=== PATIENT | female | born 1975 | race Caucasian/White ===

== ENCOUNTER 2020-09-06 18:32 | Emergency (ER) | payer BC, SELFPAY ==
[2020-09-06 18:35] VITALS: BP 160/99; PULSE 110; RESP 16; TEMP 35.8; O2SAT 99
--- NOTE | 2020-09-06 19:47 | ED.GENADULT ---
HPI - General Adult General Chief complaint: Back Pain/Injury Stated complaint: right leg pain Time Seen by Provider: 09/06/20 19:01 History of Present Illness HPI narrative: Patient is a 45-year-old female who presents the emergency department with chief complaint of right sciatic pain. Patient reports that she was seen by her primary care physician approximately 2 weeks ago and given a steroid pulse and then given Tylenol with codeine and a muscle relaxer. Patient states that she has continued to have pain and it is gotten worse the patient states the pain shoots down her right leg denies numbness or tingling denies foot drop denies bowel or bladder dysfunction. Related Data Home Medications Medication Instructions Recorded Confirmed acetaminophen-codeine tablet 09/06/20 bupropion HCl mg PO 09/06/20 hydroxyzine HCl 09/06/20 09/06/20 Allergies Allergy/AdvReac Type Severity Reaction Status Date / Time Penicillins Allergy Unknown Unknown Verified 09/06/20 18:46 Review of Systems Review of Systems: Narrative: A 10 system review of systems was completed on the patient and is negative except for what is stated in the HPI. Nursing and ancillary documentation was reviewed. PMFSH Comments Patient denies past medical history Social history patient denies illicit drug use Exam Narrative: Exam Narrative: GENERAL: Well-appearing, well-nourished, and in no acute distress. HEAD: Normocephalic, atraumatic. EYES: PERRLA and EOMI. ENT: Nares clear, no rhinorrhea or epistaxis. Mucous membranes moist. NECK: Supple. CHEST: Clear to auscultation. No respiratory distress. HEART: Regular rate and rhythm. No murmur heard. Normal peripheral pulses. ABDOMEN: Soft, nontender, nondistended, normal active bowel sounds. EXTREMITIES: Normal range of motion. No edema. There is tenderness to palpation along the right SI joint and along the sciatic nerve are unremarkable SKIN: Warm, dry, no rash. NEURO: No focal deficits. Alert and oriented x3. PSYCH: Normal mood and affect. Course Course Emergency Course: 8. Patient was given a dose of IM pain medication steroid and anti-inflammatory pain medication We discussed with the patient that she should follow-up with her primary care physician as she may need an MRI Vital Signs Vital signs: Vital Signs Temperature 35.8 C L 09/06/20 18:35 Pulse Rate 110 H 09/06/20 18:35 Respiratory Rate 16 09/06/20 18:35 Blood Pressure 160/99 H 09/06/20 18:35 Pulse Oximetry 99 09/06/20 18:35 Temperature 35.8 C L 09/06/20 18:35 Pulse Rate 110 H 09/06/20 18:35 Respiratory Rate 16 09/06/20 18:35 Blood Pressure 160/99 H 09/06/20 18:35 Pulse Oximetry 99 09/06/20 18:35 Medical Decision Making Vital Signs Vital Signs: Vital Signs Temperature 35.8 C L 09/06/20 18:35 Pulse Rate 110 H 09/06/20 18:35 Respiratory Rate 16 09/06/20 18:35 Blood Pressure 160/99 H 09/06/20 18:35 Pulse Oximetry 99 09/06/20 18:35 Temperature 35.8 C L 09/06/20 18:35 Pulse Rate 110 H 09/06/20 18:35 Respiratory Rate 16 09/06/20 18:35 Blood Pressure 160/99 H 09/06/20 18:35 Pulse Oximetry 99 09/06/20 18:35 Discharge Plan Discharge Clinical Impression: Sciatica Qualifiers: Laterality: right Qualified Code(s): M54.31 - Sciatica, right side Instructions: Sciatica (ED) Prescriptions: New hydrocodone-acetaminophen 5-325 mg tablet 1 tablet PO Q6H PRN (Reason: pain) 3 Days Qty: 12 RF: 0 prednisone 20 mg tablet 40 mg PO DAILY 5 Days Qty: 10 RF: 0 No Action acetaminophen-codeine 300-30 mg tablet RF: 0 hydroxyzine HCl 25 mg tablet RF: 0 bupropion HCl 300 mg tablet extended release 24 hr PO RF: 0 Follow-up/Referrals: Bruno,Bibi Fang, FILAMENT SHAPER-BC [Primary Care Provider] -
[2020-09-06] MEDS: KETOROLAC (*BKC) 60 MG/2 ML VIAL IM (20:23)
[2020-09-06] MEDS: HYDROmorphone HCL INJ (*CRX) 1 MG/ML SYR IM (20:23)
[2020-09-06] MEDS: DEXAMETHASONE SOD PHOS INJ 4 MG/ML VIAL 10 MG IM (20:23)
== END 2020-09-06 20:49 | disposition still patient (30) ==
PROVIDERS: Emergency Provider Emergency Medicine; PCP Nurse Practitioner Family
DX: M54.31 Sciatica, right side (principal)
CPT/HCPCS: 96372; 99284; J1100; J1170; J1885

== ENCOUNTER 2023-10-21 22:05 | Emergency (ER) | payer OTHER, BC, SELFPAY ==
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
[2023-10-21 22:12] VITALS: BP 157/106; PULSE 92; RESP 17; TEMP 36.6; O2SAT 99
[2023-10-22 00:40] VITALS: BP 146/92; PULSE 86; RESP 15; O2SAT 100
[2023-10-22] MEDS: CYCLOBENZAPRINE HCL 5 MG TABLET PO (01:04)
[2023-10-22] MEDS: ACETAMINOPHEN 500 MG TABLET 1000 MG PO (01:04)
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
[2023-10-22] MEDS: oxyCODONE HCL (*CRX) 5 MG TAB IR PO (02:19)
[2023-10-22 02:29] VITALS: BP 139/93; PULSE 84; RESP 14; O2SAT 98
== END 2023-10-22 02:31 | disposition home or self-care (01) ==
PROVIDERS: Emergency Provider Physician Assistant; PCP Nurse Practitioner Family
DX: S16.1XXA Strain of muscle, fascia and tendon at neck level, initial encounter (principal); S70.02XA Contusion of left hip, initial encounter; S39.012A Strain of muscle, fascia and tendon of lower back, initial encounter; J45.909 Unspecified asthma, uncomplicated; F41.9 Anxiety disorder, unspecified; Z87.891 Personal history of nicotine dependence; Z90.49 Acquired absence of other specified parts of digestive tract; Z90.711 Acquired absence of uterus with remaining cervical stump; I67.2 Cerebral atherosclerosis; M16.0 Bilateral primary osteoarthritis of hip; M51.36 Other intervertebral disc degeneration, lumbar region; M51.37 Other intervertebral disc degeneration, lumbosacral region; M50.322 Other cervical disc degeneration at C5-C6 level; M89.9 Disorder of bone, unspecified; V49.40XA Driver injured in collision with unspecified motor vehicles in traffic accident, initial encounter
CPT/HCPCS: 70450; 72100; 72125; 73030; 73502; 73552; 99284; A9270

== ENCOUNTER 2024-01-18 08:59 | Outpatient (CLI) | payer BC, SELFPAY ==
--- NOTE | ~2024-01-18 | US_ITS ---
EXAMINATION: US carotid duplex BI DATE: 01/18/2024 09:49 INDICATION: Occlusion and stenosis of bilateral carotid arteries. TECHNIQUE: Grayscale, color Doppler, and pulsed Doppler images of the cervical carotid arteries were obtained. The degree of vessel stenosis is placed in one of the following categories: normal, <50%, 5 0-69%, >=70% but less than near-occlusion, near-occlusion, or total occlusion. Note that percent sten osis relative to normal distal artery lumen diameter is indirectly measured from velocity measurement s as described by Willard, et al. Radiology 2003; 229:340-346. COMPARISON: None. FINDINGS: RIGHT: The right common carotid artery (CCA) peak systolic velocity (PSV) is 80 cm/s. The right internal car otid artery (ICA) PSV is 103 cm/s. The right ICA end-diastolic velocity (EDV) is 49 cm/s. The right I CA/CCA PSV ratio is 1.3. Grayscale and color Doppler images yield an estimate of <50% diameter reduct ion from plaque in the ICA. There is antegrade flow in the right vertebral artery. LEFT: The left CCA PSV is 94 cm/s. The left ICA PSV is 89 cm/s. The left ICA EDV is 39 cm/s. The left ICA/C CA PSV ratio is 0.9. Grayscale and color Doppler images yield an estimate of <50% diameter reduction from plaque in the ICA. There is antegrade flow in the left vertebral artery. IMPRESSION: 1. <50% stenosis in the right internal carotid artery. 2. <50% stenosis in the left internal carotid artery. Reviewed, dictated and finalized at location A.
--- NOTE | ~2024-01-18 | NM_ITS ---
EXAMINATION: NM bone scan limited area DATE: 01/18/2024 13:17 INDICATION: Disorder of bone with sclerotic lesion in the cervical spine on prior CT TECHNIQUE: 25.2 mCi Tc-99m HDP was administered intravenously. Delayed scintigrams were obtained and multiple obliquities of the head, neck, chest abdomen and upper pelvis. COMPARISON: Cervical spine CT and multiple radiographs dated 10/22/2023 FINDINGS: There is mild uptake extending horizontally across the lower cervical spine on the anterior scintigra m which appears to correspond to small anterior endplate osteophytes at C5-C6 as seen on the prior CT . No focus of abnormal uptake in the more cephalad cervical spine. Specifically no evident abnormal u ptake at the left side of the C4 vertebral body at the site of the previous noted sclerotic lesion mo st likely representing a bone island. Symmetric mild likely degenerative joint centered uptake at the bilateral acromioclavicular joints. Mild uptake at the left posterior aspect of the lower lumbar spi ne likely related to facet osteoarthritis at the level of L4-L5 with corresponding hypertrophic sewell es evident at this level on radiographs. IMPRESSION: 1. Likely degenerative mild joint and disc centered uptake as detailed above. No evident abnormal upt kerrie in the region of the sclerotic lesion at C4 to suggest malignancy/metastatic disease. Reviewed, dictated and finalized at location B. IMPRESSION: 1. Likely degenerative mild joint and disc centered uptake as detailed above. N o evident abnormal uptake in the region of the sclerotic lesion at C4 to sugges t malignancy/metastatic disease.
== END 2024-01-18 09:00 | disposition home or self-care (01) ==
PROVIDERS: PCP Nurse Practitioner Family; Visit Provider Nurse Practitioner Family
DX: M89.9 Disorder of bone, unspecified (principal); I65.23 Occlusion and stenosis of bilateral carotid arteries
CPT/HCPCS: 78300; 93880; A9503

== ENCOUNTER 2025-07-05 01:43 | Day surgery (SDC) | payer BC, SELFPAY ==
[2025-06-28 09:13] VITALS: BMI 23.6
--- OUTSIDE RECORDS SUMMARY | 2025-07-05 01:47 | XMS_ITS | Clinical Summary ---
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 Active multivitamin-Ca -iron-minerals 18-0.4 mg tabletIndicatio ns:Vitamin Deficiency Prevention Take 1 tablet by mouth 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 [employer] 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 before breakfast Active albuterol HFA (PROVENTIL HFA,VENTOLIN HFA,PROAIR HFA) 90 mcg/actuation inhaler Inhale 2 puffs every 6 (six) hours as needed for wheezing Active Active Problems Problem Noted Date Diagnosed Date Postoperative visit 05/29/2020 Family history of uterine cancer 10/03/2019 History of cervical dysplasia 10/03/2019 Abnormal uterine bleeding (AUB) 10/03/2019 Anxiety and depression 10/03/2019 Encounters Date Type Department Care Team Description 04/09/2025 8:30 AM CDT - 04/09/2025 11:59 PM CDT Hospital Encounter [facility] - Breast Imaging [address] [facility] [address] [facility] [address] [place] [address] Screening mammogram, encounter for Discharge Disposition: Discharge to home or self care from Last 3 Months Surgical History Surgery Date Site/Laterality Comments CHOLECYSTECTOMY 07/25/2001 - 07/24/2002 CERVICAL CONE BIOPSY 2005 or 2006 HYSTERECTOMY Medical History Medical History Date Comments Asthma Cervical dysplasia Family History Medical History Relation Name Comments Heart disease Father Uterine cancer Mother Heart disease Paternal Grandfather Heart disease Paternal Grandmother Anesthesia problems Neg Hx Relation Name Status Comments Father Mother Alive Paternal Grandfather Paternal Grandmother Social History Tobacco Use Types Packs/Day Years Used Date Smoking Tobacco: Former Cigarettes Q uit: 2004 Smokeless Tobacco: Never Alcohol Use Standard Drinks/Week Comments Yes 0 (1 standard drink = 0.6 oz pur e alcohol) rarely Comments No Sex and Gender Information Value Date Recorded Sex Assigned at Not on file Legal Sex 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 Gender Identity Female 05/29/2020 9:22 AM 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 Sexual Orientation 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 Obstetrics History Para Term AB IAB SAB Ectopic Multiple Livin g Live Births 3 2 2 2 2 Date Outcome GA Total Labor Labor/2nd/3rd Weight Sex Type Anes PTL Sandhya A1 A5 Name Clin Term Term Last Filed Vital Signs Vital Sign Reading Time Taken Comments Blood Pressure 145/92 05/29/2020 4:02 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 Pulse 87 05/29/2020 4:02 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 Temperature 36.8 C (98.2 F) 05/29/2020 4:02 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 Respiratory Rate 16 05/29/2020 4:02 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 Oxygen Saturation 96% 05/29/2020 4:02 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 Inhaled Oxygen Concentration - - Weight 74.8 kg (165 lb) 04/09/2025 9:07 AM CDT Height 170.2 cm (5' 7) 04/09/2025 9:07 AM CDT Body Mass Index 25.84 04/09/2025 9:07 AM CDT Plan of Treatment Health Maintenance Due Date Last Done Comments Colon Cancer Screening-Colonoscopy 1974 Depression Screening 1974 Hepatitis C Screening 1974 Hepatitis B Screening 02/06/1992 Regular Well Visit/Exam 18-64 02/06/1992 Pneumococcal vaccine <65 (1 of 2 - PCV) 1993 Zoster Vaccine (1 of 2) 02/06/2024 Influenza Vaccine (#1) 2025 , 05/25/2023, 05/05/2022, Additional history exists Breast Cancer Screening-Mammogram 04/09/2026 04/09/2025, 01/17/2024, 01/02/2024, Additional history exists DTaP/Tdap/Td Vaccine (2 - Td or Tdap) 12/13/2027 12/12/2017 Procedures Procedure Name Priority Date/Time Associated Diagnosis Comments SCREENING MAMMOGRAM BILATERAL W FUENTES Schedule Routine, Read Routine (OP Routine) 04/09/2025 9:14 AM CDT Screening mammogram, encounter for from Last 3 Months Results * Screening Mammogram Bilateral W Fuentes (04/09/2025 9:14 AM CDT) Anatomical Region Laterality Modality Breast Bilateral Mammography Impressions 04/10/2025 3:44 PM CDT Bilateral No evidence of malignancy in either breast. OVERALL BI-RADS FINAL ASSESSMENT: 2 - Benign RECOMMENDATION: Recommend bilateral annual screening mammography. Narrative 04/10/2025 3:44 PM CDT EXAMINATION: Screening Mammogram Bilateral W Fuentes: 04/09/2025 COMPARISON: Relevant prior studies available at the time of interpretation were reviewed, including the most recent mammogram on: 01/17/2024. TECHNIQUE: Mammography was performed with 2D and 3D digital breast tomosynthesis (DBT) images. CAD was utilized. BREAST PARENCHYMAL COMPOSITION: There are scattered areas of fibroglandular density. FINDINGS: Bilateral There is no suspicious mass, calcification, or architectural distortion in either breast. us Self Screening Mammogram IMG MAMMO PROCEDURES Fi nal Result from Last 3 Months Insurance ANTH ACCESS BLUE ACCESS CT BLUE ACCESS CT BLUE ACCESS CT Care Teams Torch Shearer Relationship Specialty Start Date End Date Bibi Carr NP PCP - General Nurse Practitioner 10/03/19 Lenore Lee MD [address] [place] [address] Referring Physician Gynecology 12/17/22
--- OUTSIDE RECORDS SUMMARY | 2025-07-05 01:47 | XMS_ITS | Data Portability ---
Author Organization [facility], Main Office Address [address] [place] [address] Assessment No assessment recorded. Plan of Treatment Reminders Order Date Submit Date Provider Last Modified By Organization Details Last Modified Time Details Appointments None recorded. Lab lipid panel, serum 2022 023 [facility], [address] [place], [address], 3 04:45:14 TSH, serum, reflex free T4 [email or web address], [address] [place], [address], 3 12:03:13 CMP, serum or plasma 2022 023 [facility], [address] [place], [address], 3 04:45:15 HbA1c (hemoglobin A1c), blood 2022 023 [facility], [address] [place], [address], 3 04:45:18 CBC w/ auto diff 2022 023 [facility], [address] [place], [address], 3 04:45:16 Referral gastroenter ologist referral - Please call pt to schedule appt. Thank you 2022 023 [email or web address] 7 Thomas reid MD, [address], [address], [place], [address], 3 09:57:10 Procedures None recorded. Surgeries None recorded. Imaging None recorded. Medication Orders doxycycline hyclate 100 mg capsule 2022 023 [facility], [address] [place] [address], [address], 3 09:11:57 metronidazo le 0.75 % topical gel 2022 023 [facility], [address] [place], [address], 3 09:11:57 Patient TargetsNo targets recorded. Patient Instructions Encounter Date Encounter Id Patient Instructions Last Modified By Organization Details Last Modified Time 10/08/2022 [id number] Wellness after 10/09/23 [email or web address] Not available 10/08/2022 09:21:16 Reason for Referral Cardiopulmonary Specialist Referral for Screening for malignant neoplasm of colon Please call pt to schedule appt. Thank you Referring Physician: Bibi Carr, Family Medicine, Encounter Date: 10/08/2022 Results Created Date Observation Date Name Description Value Unit Range Abnormal Flag Note LastModifiedBy Organization Detail LastModifiedTime 02/06/2002/06/2021 HEMOG LOBIN A1C hemoglobin A1C 5.3 %_of_ total _HGB <5.7 normal Not Available [facility], [facility] [address] [place], [address], 02/06/2021 06:35:08 02/06/2002/06/2021 VITAM IN D,25- OH,TO MEHDI,I A vitamin D,25-oh,tota l,ia 42 NG/mL 30-100 normal Vitam in D Statu s 25-OH Vitam in D: Defic iency : <20 ng/mL Insuf ficie ncy: 20 - 29 ng/mL Optim al: > or = 30 ng/mL For 25-OH Vitam in D testi ng on patie nts on D2-reed pplem entat ion and patie nts for whom quant itati on of D2 and D3 fract ions is requi red, the [facility] Assur eD(TM ) 25-OH VIT D, (D2,D 3), LC/MS /MS is recom zuly d: order code 62426 (jayna ents >2yrs ). See Note 1 Note 1 For addit ional infor adam katz refer to http: //[facility] marleny belle.Mario stDia gnost ics.c om/fa q/FAQ 199 (This link is being provi ded for infor lai apodaca/ educnunu carreon purpo ses only. ) Not Available [address] [address] [place], [address], 02/06/2021 06:35:08 02/06/20 21 02/06/2021 TSH W/REF VITALY TO FT4 TSH w/reflex to FT4 2.17 mIU/L normal Refer ence Range > or = 20 Years 0.40- 4.50 Pregn nelly Range s First trime ster 0.26- 2.66 Secon d trime ster 0.55- 2.73 Third trime ster 0.43- 2.91 Not Available [address], [address], 02/06/2021 06:35:07 02/06/20 21 02/06/2021 VITAM IN B12/F OLATE , SERUM PANEL vitamin B12 438 pg/mL 200-11 00 normal Not Available [address] [address] [place], [address], 02/06/2021 06:35:07 02/06/20 21 02/06/2021 VITAM IN B12/F OLATE , SERUM PANEL folate, serum 8.7 NG/mL normal Refer ence Range Low: <3.4 Borde rline : 3.4-5 .4 Socorro l: >5.4 Not Available [address] [address] [place], [address], 02/06/2021 06:35:07 02/06/20 21 02/06/2021 CBC (INCL UDES DIFF/ PLT) white blood cell count 5.8 thous and/u L 3.8-10 .8 normal Not Available [address], [address], 02/06/2021 06:35:07 02/06/20 21 02/06/2021 CBC (INCL UDES DIFF/ PLT) red blood cell count 4.85 angelic on/uL 3.80-5 .10 normal Not Available [address], [address], 02/06/2021 06:35:07 02/06/20 21 02/06/2021 CBC (INCL UDES DIFF/ PLT) hemoglobin 13.4 g/dL 11.7-1 5.5 normal Not Available [address], [address], 02/06/2021 06:35:07 02/06/20 21 02/06/2021 CBC (INCL UDES DIFF/ PLT) hematocrit 42.3 % 35.0-4 5.0 normal Not Available [address], [address], 02/06/2021 06:35:07 02/06/20 21 02/06/2021 CBC (INCL UDES DIFF/ PLT) MCV 87.2 fL 80.0-1 00.0 normal Not Available [address], [address], 02/06/2021 06:35:07 02/06/20 21 02/06/2021 CBC (INCL UDES DIFF/ PLT) MCH 27.6 pg 27.0-3 3.0 normal Not Available [address], [address], 02/06/2021 06:35:07 02/06/20 21 02/06/2021 CBC (INCL UDES DIFF/ PLT) MCHC 31.7 g/dL 32.0-3 6.0 low Not Available [address], [address], 02/06/2021 06:35:07 02/06/20 21 02/06/2021 CBC (INCL UDES DIFF/ PLT) RDW 12.9 % 11.0-1 5.0 normal Not Available [address], [address], 02/06/2021 06:35:07 02/06/20 21 02/06/2021 CBC (INCL UDES DIFF/ PLT) platelet count 358 thous and/u L 140-40 0 normal Not Available [address], [address], 02/06/2021 06:35:07 02/06/20 21 02/06/2021 CBC (INCL UDES DIFF/ PLT) MPV 9.4 fL 7.5-12 .5 normal Not Available [address], [address], 02/06/2021 06:35:07 02/06/20 21 02/06/2021 CBC (INCL UDES DIFF/ PLT) absolute neutrophils 4147 cells /uL 1500-7 800 normal Not Available [address], [address], 02/06/2021 06:35:07 02/06/20 21 02/06/2021 CBC (INCL UDES DIFF/ PLT) absolute lymphocytes 1108 cells /uL 850-39 00 normal Not Available [address], [address], 02/06/2021 06:35:07 02/06/20 21 02/06/2021 CBC (INCL UDES DIFF/ PLT) absolute monocytes 331 cells /uL 200-95 0 normal Not Available [address], [place], [address], 02/06/2021 06:35:07 02/06/20 21 02/06/2021 CBC (INCL UDES DIFF/ PLT) absolute eosinophils 162 cells /uL 15-500 normal Not Available [address], [address], 02/06/2021 06:35:07 02/06/20 21 02/06/2021 CBC (INCL UDES DIFF/ PLT) absolute basophils 52 cells /uL 0-200 normal Not Available [facility] [address], [address], 02/06/2021 06:35:07 02/06/20 21 02/06/2021 CBC (INCL UDES DIFF/ PLT) neutrophils 71.5 % normal Not Available [address], [address], 02/06/2021 06:35:07 02/06/20 21 02/06/2021 CBC (INCL UDES DIFF/ PLT) lymphocytes 19.1 % normal Not Available [address], [address], 02/06/2021 06:35:07 02/06/20 21 02/06/2021 CBC (INCL UDES DIFF/ PLT) monocytes 5.7 % normal Not Available [address], [address], 02/06/2021 06:35:07 02/06/20 21 02/06/2021 CBC (INCL UDES DIFF/ PLT) eosinophils 2.8 % normal Not Available [address], [address], 02/06/2021 06:35:07 02/06/20 21 02/06/2021 CBC (INCL UDES DIFF/ PLT) basophils 0.9 % normal Not Available [address], [address], 02/06/2021 06:35:07 02/06/20 21 02/06/2021 COMPR EHENS SLOANE METAB OLIC PANEL glucose 87 mg/dL 65-99 normal Fasti ng refer ence inter jannie Not Available [address], [address], 02/06/2021 06:35:06 02/06/20 21 02/06/2021 COMPR EHENS SLOANE METAB OLIC PANEL urea nitrogen (BUN) 11 mg/dL 7-25 normal Not Available [address], [address], 02/06/2021 06:35:06 02/06/20 21 02/06/2021 COMPR EHENS SLOANE METAB OLIC PANEL creatinine 0.78 mg/dL 0.50-1 .10 normal Not Available [address], [address], 02/06/2021 06:35:06 02/06/20 21 02/06/2021 COMPR EHENS SLOANE METAB OLIC PANEL eGFR non-afr. greek 91 mL/mi n/1.7 3m2 > or = 60 normal Not Available [address], [address], 02/06/2021 06:35:06 02/06/20 21 02/06/2021 COMPR EHENS SLOANE METAB OLIC PANEL eGFR 105 mL/mi n/1.7 3m2 > or = 60 normal Not Available [address], [address], 02/06/2021 06:35:06 02/06/20 21 02/06/2021 COMPR EHENS SLOANE METAB OLIC PANEL BUN/creatini ne ratio not applic able (calc ) 6-22 Not Available [address], [address], 02/06/2021 06:35:06 02/06/20 21 02/06/2021 COMPR EHENS SLOANE METAB OLIC PANEL sodium 137 mmol/ L 135-14 6 normal Not Available [address], [address], 02/06/2021 06:35:06 02/06/20 21 02/06/2021 COMPR EHENS SLOANE METAB OLIC PANEL potassium 4.3 mmol/ L 3.5-5. 3 normal Not Available [address], [address], 02/06/2021 06:35:06 02/06/20 21 02/06/2021 COMPR EHENS SLOANE METAB OLIC PANEL chloride 103 mmol/ L 98-110 normal Not Available [address], [address], 02/06/2021 06:35:06 02/06/20 21 02/06/2021 COMPR EHENS SLOANE METAB OLIC PANEL carbon dioxide 25 mmol/ L 20-32 normal Not Available [address], [address], 02/06/2021 06:35:06 02/06/20 21 02/06/2021 COMPR EHENS SLOANE METAB OLIC PANEL calcium 9.0 mg/dL 8.6-10 .2 normal Not Available [address], [address], 02/06/2021 06:35:06 02/06/20 21 02/06/2021 COMPR EHENS SLOANE METAB OLIC PANEL protein, total 7.1 g/dL 6.1-8. 1 normal Not Available [address], [address], 02/06/2021 06:35:06 02/06/20 21 02/06/2021 COMPR EHENS SLOANE METAB OLIC PANEL albumin 4.0 g/dL 3.6-5. 1 normal Not Available [address] [address] [place], [address], 02/06/2021 06:35:06 02/06/20 21 02/06/2021 COMPR EHENS SLOANE METAB OLIC PANEL globulin 3.1 g/dL_ (calc ) 1.9-3. 7 normal Not Available [address] [address] [place], [address], 02/06/2021 06:35:06 02/06/20 21 02/06/2021 COMPR EHENS SLOANE METAB OLIC PANEL albumin/glob ulin ratio 1.3 (calc ) 1.0-2. 5 normal Not Available [address], [address], 02/06/2021 06:35:06 02/06/20 21 02/06/2021 COMPR EHENS SLOANE METAB OLIC PANEL bilirubin, total 0.4 mg/dL 0.2-1. 2 normal Not Available [address] [address] [place], [address], 02/06/2021 06:35:06 02/06/20 21 02/06/2021 COMPR EHENS SLOANE METAB OLIC PANEL alkaline phosphatase 69 U/L 31-125 normal Not Available [address] [address] [place], [address], 02/06/2021 06:35:06 02/06/20 21 02/06/2021 COMPR EHENS SLOANE METAB OLIC PANEL AST 16 U/L 10-35 normal Not Available [address] [address] [place], [address], 02/06/2021 06:35:06 02/06/20 21 02/06/2021 COMPR EHENS SLOANE METAB OLIC PANEL ALT 15 U/L 6-29 normal Not Available [address] [address] [place], [address], 02/06/2021 06:35:06 02/06/20 21 02/06/2021 LIPID PANEL , STAND JENNIFER cholesterol, total 152 mg/dL <200 normal Not Available [address] [address] [place], [address], 02/06/2021 06:35:05 02/06/20 21 02/06/2021 LIPID PANEL , STAND JENNIFER HDL cholesterol 38 mg/dL > or = 50 low Not Available [address] [address] [place], [address], 02/06/2021 06:35:05 02/06/20 21 02/06/2021 LIPID PANEL , STAND JENNIFER triglyceride s 51 mg/dL <150 normal Not Available [address], [address], 02/06/2021 06:35:05 02/06/20 21 02/06/2021 LIPID PANEL , STAND JENNIFER LDL-choleste rol 101 mg/dL _(roderick c) high Refer ence range : <100 Pritesh able range <100 mg/dL for prima ry preve ntion ; <70 mg/dL for patie nts with CHD or diabe tic patie nts with > or = 2 CHD risk facto rs. LDL-C is now calcu lated using the [facility] calcu alice n, which is a valid ated novel metho d gloriai maged kimte r accur acy than the Fried carolin equat ion in the estim ation of LDL-C . Sara belle SS et al. VALERIANO. 2013; 310(1 9): 2061- 2068 (http ://ed ucati on.Qu Gerardo urrutiapayevers. com/f aq/FA Q164) Not Available [address] [address] [place], [address], 02/06/2021 06:35:05 02/06/20 21 02/06/2021 LIPID PANEL , STAND JENNIFER chol/HDLC ratio 4.0 (calc ) <5.0 normal Not Available [address] [address] [place], [address], 02/06/2021 06:35:05 02/06/2002/06/2021 LIPID PANEL , STAND JENNIFER non HDL cholesterol 114 mg/dL _(roderick c) <130 normal For patie nts with diabe johanny plus 1 major ASCVD risk facto r, treat ing to a non-H DL-C goal of <100 mg/dL (LDL- C of <70 mg/dL ) is consi tyrelld a noraa key godoy optio n. Not Available [address] [address] [place], [address], 02/06/2021 06:35:05 10/09/19 23 10/09/2022 LIPID PANEL , STAND JENNIFER cholesterol, total 172 mg/dL <200 normal Not Available [address] [address] [place], [address], 10/09/2022 04:45:14 10/09/19 23 10/09/2022 LIPID PANEL , STAND JENNIFER HDL cholesterol 45 mg/dL > or = 50 low Not Available [facility] [address] [address] [place], [address], 10/09/2022 04:45:14 10/09/19 23 10/09/2022 LIPID PANEL , STAND JENNIFER triglyceride s 63 mg/dL <150 normal Not Available [address] [address] [place], [address], 10/09/2022 04:45:14 10/09/19 23 10/09/2022 LIPID PANEL , STAND JENNIFER LDL-choleste rol 112 mg/dL _(roderick c) high Refer ence range : <100 Pritesh able range <100 mg/dL for prima ry preve ntion ; <70 mg/dL for patie nts with CHD or diabe tic patie nts with > or = 2 CHD risk facto rs. LDL-C is now calcu lated using the [facility] n-Hop kins calcu alice n, which is a valid ated novel metho d provi maged burnham r accur acy than the Fried carolin equat ion in the estim ation of LDL-C . Sara n SS et al. VALERIANO. 2013; 310(1 9): 2061- 2068 (http ://ed ucati on.Domobios Gerardo [employer]. com/f aq/FA Q164) Not Available [address] [address] [place], [address], 10/09/2022 04:45:14 10/09/1910/09/2022 LIPID PANEL , STAND JENNIFER chol/HDLC ratio 3.8 (calc ) <5.0 normal Not Available [address], [address], 10/09/2022 04:45:14 10/09/1910/09/2022 LIPID PANEL , STAND JENNIFER non HDL cholesterol 127 mg/dL _(roderick c) <130 normal For patie nts with diabe johanny plus 1 major ASCVD risk facto r, treat ing to a non-H DL-C goal of <100 mg/dL (LDL- C of <70 mg/dL ) is consi tyrelld a noraa peprudencio c optio n. Not Available [address], [address], 10/09/2022 04:45:14 10/09/1910/09/2022 COMPR EHENS SLOANE METAB OLIC PANEL glucose 94 mg/dL 65-99 normal Fasti ng refer ence inter jannie Not Available [address], [address], 10/09/2022 04:45:15 10/09/1910/09/2022 COMPR EHENS SLOANE METAB OLIC PANEL urea nitrogen (BUN) 11 mg/dL 7-25 normal Not Available [address], [address], 10/09/2022 04:45:15 10/09/19 23 10/09/2022 COMPR EHENS SLOANE METAB OLIC PANEL creatinine 0.83 mg/dL 0.50-0 .99 normal Not Available [address], [address], 10/09/2022 04:45:15 10/09/19 23 10/09/2022 COMPR EHENS SLOANE METAB OLIC PANEL eGFR 87 mL/mi n/1.7 3m2 > or = 60 normal The eGFR is based on the CKD-E PI 2020 equat ion. To calcu late the new eGFR from a previ ous Creat inine or Cysta tin C resul t, go to https ://jorge w.kayley goodrichy.o maricruz/ephraim britton s/ kdoqi /gfr% 5Fcal culat or Not Available [address], [address], 10/09/2022 04:45:15 10/09/19 23 10/09/2022 COMPR EHENS SLOANE METAB OLIC PANEL BUN/creatini ne ratio NOT APPLIC ABLE (calc ) 6-22 Not Available [address], [address], 10/09/2022 04:45:15 10/09/19 23 10/09/2022 COMPR EHENS SLOANE METAB OLIC PANEL sodium 136 mmol/ L 135-14 6 normal Not Available [address], [address], 10/09/2022 04:45:15 10/09/19 23 10/09/2022 COMPR EHENS SLOANE METAB OLIC PANEL potassium 4.0 mmol/ L 3.5-5. 3 normal Not Available [employer] [address], [address], 10/09/2022 04:45:15 10/09/19 23 10/09/2022 COMPR EHENS SLOANE METAB OLIC PANEL chloride 103 mmol/ L 98-110 normal Not Available [address], [address], 10/09/2022 04:45:15 10/09/19 23 10/09/2022 COMPR EHENS SLOANE METAB OLIC PANEL carbon dioxide 27 mmol/ L 20-32 normal Not Available [address], [address], 10/09/2022 04:45:15 10/09/19 23 10/09/2022 COMPR EHENS SLOANE METAB OLIC PANEL calcium 8.9 mg/dL 8.6-10 .2 normal Not Available [address], [address], 10/09/2022 04:45:15 10/09/19 23 10/09/2022 COMPR EHENS SLOANE METAB OLIC PANEL protein, total 7.0 g/dL 6.1-8. 1 normal Not Available [address], [address], 10/09/2022 04:45:15 10/09/19 23 10/09/2022 COMPR EHENS SLOANE METAB OLIC PANEL albumin 4.2 g/dL 3.6-5. 1 normal Not Available [address], [address], 10/09/2022 04:45:15 10/09/19 23 10/09/2022 COMPR EHENS SLOANE METAB OLIC PANEL globulin 2.8 g/dL_ (calc ) 1.9-3. 7 normal Not Available [address], [address], 10/09/2022 04:45:15 10/09/19 23 10/09/2022 COMPR EHENS SLOANE METAB OLIC PANEL albumin/glob ulin ratio 1.5 (calc ) 1.0-2. 5 normal Not Available [address], [address], 10/09/2022 04:45:15 10/09/19 23 10/09/2022 COMPR EHENS SLOANE METAB OLIC PANEL bilirubin, total 0.4 mg/dL 0.2-1. 2 normal Not Available [address], [address], 10/09/2022 04:45:15 10/09/19 23 10/09/2022 COMPR EHENS SLOANE METAB OLIC PANEL alkaline phosphatase 70 U/L 31-125 normal Not Available [facility] [employer] [address], [address], 10/09/2022 04:45:15 10/09/19 23 10/09/2022 COMPR EHENS SLOANE METAB OLIC PANEL AST 17 U/L 10-35 normal Not Available [address], [address], 10/09/2022 04:45:15 10/09/19 23 10/09/2022 COMPR EHENS SLOANE METAB OLIC PANEL ALT 19 U/L 6-29 normal Not Available [address], [address], 10/09/2022 04:45:15 10/09/19 23 10/09/2022 CBC (INCL UDES DIFF/ PLT) white blood cell count 6.7 thous and/u L 3.8-10 .8 normal Not Available [address], [address], 10/09/2022 04:45:16 10/09/1910/09/2022 CBC (INCL UDES DIFF/ PLT) red blood cell count 4.49 angelic on/uL 3.80-5 .10 normal Not Available [address], [address], 10/09/2022 04:45:16 10/09/19 23 10/09/2022 CBC (INCL UDES DIFF/ PLT) hemoglobin 12.9 g/dL 11.7-1 5.5 normal Not Available [employer] [address], [address], 10/09/2022 04:45:16 10/09/19 23 10/09/2022 CBC (INCL UDES DIFF/ PLT) hematocrit 39.1 % 35.0-4 5.0 normal Not Available [address], [address], 10/09/2022 04:45:16 10/09/1910/09/2022 CBC (INCL UDES DIFF/ PLT) MCV 87.1 fL 80.0-1 00.0 normal Not Available [address], [address], 10/09/2022 04:45:16 10/09/19 23 10/09/2022 CBC (INCL UDES DIFF/ PLT) MCH 28.7 pg 27.0-3 3.0 normal Not Available [address], [address], 10/09/2022 04:45:16 10/09/19 23 10/09/2022 CBC (INCL UDES DIFF/ PLT) MCHC 33.0 g/dL 32.0-3 6.0 normal Not Available [address], [address], 10/09/2022 04:45:16 10/09/1910/09/2022 CBC (INCL UDES DIFF/ PLT) RDW 12.5 % 11.0-1 5.0 normal Not Available [address], [address], 10/09/2022 04:45:16 10/09/1910/09/2022 CBC (INCL UDES DIFF/ PLT) platelet count 355 thous and/u L 140-40 0 normal Not Available [address], [address], 10/09/2022 04:45:16 10/09/19 23 10/09/2022 CBC (INCL UDES DIFF/ PLT) MPV 9.4 fL 7.5-12 .5 normal Not Available [address], [address], 10/09/2022 04:45:16 10/09/19 23 10/09/2022 CBC (INCL UDES DIFF/ PLT) absolute neutrophils 4851 cells /uL 1500-7 800 normal Not Available [address], [address], 10/09/2022 04:45:16 10/09/19 23 10/09/2022 CBC (INCL UDES DIFF/ PLT) absolute lymphocytes 1320 cells /uL 850-39 00 normal Not Available [address], [address], 10/09/2022 04:45:16 10/09/19 23 10/09/2022 CBC (INCL UDES DIFF/ PLT) absolute monocytes 328 cells /uL 200-95 0 normal Not Available [address], [address], 10/09/2022 04:45:16 10/09/19 23 10/09/2022 CBC (INCL UDES DIFF/ PLT) absolute eosinophils 141 cells /uL 15-500 normal Not Available [address], [address], 10/09/2022 04:45:16 10/09/19 23 10/09/2022 CBC (INCL UDES DIFF/ PLT) absolute basophils 60 cells /uL 0-200 normal Not Available [address], [address], 10/09/2022 04:45:16 10/09/19 23 10/09/2022 CBC (INCL UDES DIFF/ PLT) neutrophils 72.4 % normal Not Available [address], [address], 10/09/2022 04:45:16 10/09/19 23 10/09/2022 CBC (INCL UDES DIFF/ PLT) lymphocytes 19.7 % normal Not Available [address], [address], 10/09/2022 04:45:16 10/09/19 23 10/09/2022 CBC (INCL UDES DIFF/ PLT) monocytes 4.9 % normal Not Available [facility] [address], [address], 10/09/2022 04:45:16 10/09/19 23 10/09/2022 CBC (INCL UDES DIFF/ PLT) eosinophils 2.1 % normal Not Available [address], [address], 10/09/2022 04:45:16 10/09/1910/09/2022 CBC (INCL UDES DIFF/ PLT) basophils 0.9 % normal Not Available [address], [address], 10/09/2022 04:45:16 10/09/1910/09/2022 TSH W/REF VITALY TO FT4 TSH w/reflex to FT4 2.92 mIU/L normal Refer ence Range > or = 20 Years 0.40- 4.50 Pregn nelly Range s First trime ster 0.26- 2.66 Secon d trime ster 0.55- 2.73 Third trime ster 0.43- 2.91 Not Available [address], [address], 10/09/2022 04:45:17 10/09/1910/09/2022 HEMOG LOBIN A1C hemoglobin A1C 5.2 %_of_ total _HGB <5.7 normal For the purpo se of ross joy for the prese nce of diabe johanny: <5.7% Consi stent with the absen ce of diabe johanny 5.7-6 .4% Consi stent with incre ased risk for diabe johanny (pred iabet es) > or =6.5% Consi stent with diabe johanny This assay resul t is consi stent with a decre ased risk of diabe johanny. Curre ntly, no conse nsus exist s regar maged use of hemog lobin A1c for diagn osis of diabe johanny in child cyndy. Accor ding to Ameri can Diabe johanny Assoc iatio n (ADA) guide lines , hemog lobin A1c <7.0% repre sents optim al contr ol in non-p regna nt diabe tic patie nts. Diffe rent metri cs may apply to speci fic patie nt popul ation s. Stand ards of Medic al Care in Diabe johanny(A DA). Not Available [facility] [address] [place], [address], 10/09/2022 04:45:18 12/03/19 22 11/27/2021 MAMMO , scree benita, bilat eral No observ ation record ed. [email or web address] [address], [address], 10/08/2022 09:08:48 12/23/19 23 12/17/2022 MAMMO , scree benita, bilat eral No observ ation record ed. [address], [address], 12/23/2022 15:41:04 01/02/20 24 12/30/2023 MAMMO , scree benita, bilat eral No observ ation record ed. [email or web address] [address], [address], 01/17/2024 11:00:31 01/17/20 24 12/30/2023 MAMMO , scree benita, bilat eral No observ ation record ed. [email or web address] [address], [address], 01/23/2024 13:25:50 06/25/20 24 01/17/2024 MAMMO , scree benita, bilat eral No observ ation record ed. [email or web address] [facility] [address] [place], [address], 01/23/2024 13:26:02 01/18/20 24 01/17/2024 MAMMO , scree benita, bilat eral No observ ation record ed. [email or web address] [facility] [address] [place], [address], 01/23/2024 13:26:12 Result Notes None recorded. Problems Name Problem SNOMED Code Status Onset Date Resolution Date Notes Provider Name and Address Organization Details Recorded Time Acute sinusitis 04293149 Active Not Available [facility] 3 09:16:48 Asthma 164719529 Active Not Available [facility] 3 09:16:48 Dyspnea 772534916 Active Not Available [facility] 3 09:16:48 Posterior rhinorrhea 02576961 Active Not Available [facility] 3 09:16:49 Vitamin D deficiency 49902990 Active 2017 Not Available [facility] 3 09:16:49 Obese 536296404 Active 2017 Not Available [facility] 3 09:16:49 Acne 48930143 Active 2022 Bibi Carr NP [address] [facility], [place] [address], [place], [address] , [email or web address] [facility] 3 09:09:42 Bunion 178703093 Active 2022 Bibi Carr NP [address], [address], [place], [address] , [employer] 3 20:53:17 Problem Notes None recorded. Procedures Surgical History Date Name Laterality Status Provider Name and Address Organization Details Recorded Time 09/24/19 Most Recent Mammogram completed Not Available [facility] 09/22/2022 09:13:13 Hysterectomy completed Not Available [facility] 09/22/2022 09:13:14 Cholecystectomy completed Not Available [facility] 09/22/2022 09:13:14 Imaging Results None recorded. Procedure Notes None recorded. Medical Equipment None Reported. Allergies Allergen ID Allergen Name Allergen Category Reaction Reaction Severity Criticality Documentation Date Start Date Code Code System Note Provider Name and Address Organization Details Recorded Time Product containin g penicilli n (product) medicatio n rash Not available Not available 09/22/2022 [id number] SNOMED Not Available [facility] 09:21:29 Medications Name Sig Start Date Stop Date Status Note LastModified by Organization Details LastModified Time methocarbam ol 500 mg tablet Take 2 tablets 4 times a day by oral route. active Not Available Not Available No t Available doxycycline hyclate 100 mg capsule TAKE 1 CAPSULE BY MOUTH ONCE DAILY active Not Available Not Available No t Available azithromyci n 250 mg tablet ZPK 08/27 completed Not Available Not Available Not Available ofloxacin 0.3 % eye drops INSTILL 1 DROP INTO LEFT EYE QID FOR 7 DAYS. active Not Available Not Available No t Available fluconazole 150 mg tablet 12/12 completed Not Available Not Available Not Available hydrocodone 5 mg-acetamin ophen 325 mg tablet TAKE 1 TABLET BY MOUTH EVERY 6 HOURS FOR 3 DAYS NEEDED FOR PAIN active Not Available Not Available No t Available meloxicam 15 mg tablet TAKE 1 TABLET BY MOUTH EVERY DAY NEEDED 10/08 completed Not Available Not Available Not Available naltrexone 50 mg tablet TAKE 1/2 (ONE-HALF ) TABLET BY MOUTH TWICE DAILY WITH BUPROPION active Not Available Not Available No t Available prednisone 20 mg tablet TAKE TWO TABLETS EVERY DAY FOR 5 DAYS active Not Available Not Available No t Available phentermine 15 mg capsule Take 1 capsule every day by oral route. 10/08 completed Not Available Not Available Not Available Advair Diskus 100 mcg-50 mcg/dose powder for inhalation INHALE 1 PUFF BY MOUTH TWICE DAILY DIRECTED 12/12 completed Not Available Not Available Not Available phentermine 37.5 mg tablet TAKE 1 TABLET BY MOUTH EVERY DAY 10/07 completed Not Available Not Available Not Available acetaminoph en 300 mg-codeine 30 mg tablet TAKE 1 TABLET BY MOUTH EVERY 6 HOURS NEEDED FOR PAIN active Not Available Not Available No t Available methocarbam ol 750 mg tablet Take 1 tablet 3 times a day by oral route as needed. active Not Available Not Available No t Available naproxen 500 mg tablet,jerrell yed release 12/12 completed Not Available Not Available Not Available hydroxyzine HCl 25 mg tablet active Not Available Not Available Not Available levofloxaci n 500 mg tablet TK 1 T PO D FOR 7 DAYS 10/22 completed Not Available Not Available Not Available methylpredn isolone 4 mg tablets in a dose pack FPD 08/27 completed Not Available Not Available Not Available Vitamin D2 1,250 mcg (50,000 unit) capsule 12/12 completed Not Available Not Available Not Available fluticasone propionate 50 mcg/actuati on nasal spray,suspe nsion USE 2 SPRAYS IN EACH NOSTRIL ONCE D 10/22 completed Not Available Not Available Not Available metronidazo le 0.75 % topical gel APPLY A THIN LAYER TO THE AFFECTED AREA(S) BY TOPICAL ROUTE 2 TIMES PER DAY IN THE MORNING AND EVENING. active Not Available Not Available No t Available oxycodone 5 mg tablet TK 1 T PO Q 4 H PRN P active Not Available Not Available No t Available bupropion HCl XL 300 mg 24 hr tablet, extended release TAKE 1 TABLET BY MOUTH EVERY DAY active Not Available Not Available No t Available bupropion HCl XL 150 mg 24 hr tablet, extended release TK 1 T PO D 08/27 completed Not Available Not Available Not Available ProAir HFA 90 mcg/actuati on aerosol inhaler INHALE 2 PUFFS BY MOUTH EVERY 4 HOURS DIRECTED active Not Available Not Available No t Available Wegovy 0.25 mg/0.5 mL subcutaneou s pen injector INJECT 0.25MG EVERY WEEK BY SUBCUTANE OUS ROUTE (THEN TO 0.5 MG) active Not Available Not Available No t Available Wegovy 0.5 mg/0.5 mL subcutaneou s pen injector INJECT 0.5MG EVERY WEEK SUBCUTANE OUSLY active Not Available Not Available No t Available Vitals Date Recorded Body height Body mass index (BMI) Body weight Body temperature Respiratory rate Heart rate Oxygen saturation Systolic And Diastolic Provider Name and Address Organization Details Last Updated DateTime 3 172.72 cm 32.1 kg/m2 72911.3 4 g 97.2 [degF] 16 /min 72 /min 97 % 140/90 mm[Hg] Bibi Nimo, RN [facility] 3 08:42:06 Date Recorded Body mass index (BMI) Body height Oxygen saturation Heart rate Body temperature Body weight Systolic And Diastolic Provider Name and Address Organization Details Last Updated DateTime 1 29.2 kg/m2 175.26 cm 98 % 90 /min 98.1 [degF] 77597.2 9 g 122/70 mm[Hg] Not Available [facility] 3 09:15:40 Date Recorded Body mass index (BMI) Body height Body temperature Body weight Systolic And Diastolic Provider Name and Address Organization Details Last Updated DateTime 04/02/2021 29 kg/m2 175.26 cm 98.4 [degF] 03405.2 5 g 130/90 mm[Hg] Not Available [facility] 3 09:15:40 Date Recorded Body mass index (BMI) Body height Oxygen saturation Heart rate Body temperature Body weight Systolic And Diastolic Provider Name and Address Organization Details Last Updated DateTime 1 28.5 kg/m2 175.26 cm 98 % 82 /min 97.5 [degF] 16613.3 3 g 128/78 mm[Hg] Not Available [facility] 3 09:15:40 Date Recorded Body mass index (BMI) Body height Oxygen saturation Heart rate Body temperature Body weight Systolic And Diastolic Provider Name and Address Organization Details Last Updated DateTime 1 28.8 kg/m2 175.26 cm 99 % 76 /min 97.2 [degF] 27009.5 1 g 124/72 mm[Hg] Not Available [facility] 3 09:15:40 Social History Question Answer Notes LastModified by Organizat ion Details LastModified Time Tobacco Smoking Status Former Smoker Bibi Suero RN [facility], [facility] 10/08/2022 08:44:23 Do You Have An Advance Directive? No Information not available 10/08/2022 Do You Wear A Helmet When Biking? No Information not available 10/08/2022 Is Blood Transfusion Acceptable In An Emergency? Yes [email or web address] Information not available 10/08/2022 What Is Your Level Of Caffeine Consumption? Occasional [id number] Information not available 09/22/2022 How Much Tobacco Do You Chew? None [id number] Information not available 09/22/2022 What Is Your Code Status? Full Code Information not available 10/08/2022 In The 14 Days Before Symptom Onset, Have You Had Close Contact With A Laboratory-confir med COVID-19 While That Case Was Ill? No Information not available 10/08/2022 In The 14 Days Before Symptom Onset, Have You Had Close Contact With A Person Who Is Under Investigation For COVID-19 While That Person Was Ill? No Information not available 10/08/2022 What Type Of Diet Are You Following? REGULAR Information not available 10/08/2022 Which Illicit Or Recreational Drugs Have You Used? None Information not available 10/08/2022 Have There Been Any Changes To Your Family Or Social Situation? No Information no t available 10/08/2022 When Did You Quit Smoking? 11-15yearssinc elastcigarette Information not available 10/08/2022 Do You Use Insect Repellent Routinely? Yes Information not available 10/08/2022 Do You Have A Medical Power Of Tile Designer? No Information not available 10/08/2022 How Many Children Do You Have? 1 Information not available 10/08/2022 Have You Ever Been Counseled For Unhealthy Alcohol Use? No Information not available 10/08/2022 Do You Have Any Pets? No Information not available 10/08/2022 Do You Use Protection During Sex? No Information not available 10/08/2022 What Is Your Relationship Status? [id number] Information not available 09/22/2022 Do You Use Your Seat Belt Or Car Seat Routinely? Yes Information not available 10/08/2022 Are You Sexually Active? Yes Information not available 10/08/2022 Do You Have Smoke And Carbon Monoxide Detectors In Your Home? Yes Information not available 10/08/2022 At What Age Did You Start Smoking Tobacco? 15 Information not available 10/08/2022 Are There Any Smokers In Your House? No [email or web address] Information not available 10/08/2022 Do You Participate In Social Media? Yes Information not available 10/08/2022 Do You Use Sunscreen Routinely? Yes Information not available 10/08/2022 Has Tobacco Cessation Counseling Been Provided? No Information not available 10/08/2022 Have You Recently Traveled Abroad? No Information not available 10/08/2022 Do You Have Any Dietary Restrictions? No Information not available 10/08/2022 Sex: Unknown Functional Status Question Answer Note LastModified by Organizat ion Details LastModified Time Do you use any illicit or recreational drugs? No Information not available 10/08/2022 Do you or have you ever used any other forms of tobacco or nicotine? No Information not available 10/08/2022 What is your level of alcohol consumption? Occasional [id number] Information not available 09/22/2022 Do you or have you ever used smokeless tobacco? Former smokeless tobacco user [id number] Information not available 09/22/2022 Are you currently employed? 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 Never used electronic cigarettes Information not available 10/08/2022 What is your exercise level? None Information not available 10/08/2022 Mental Status Question Answer Note LastModified by Organization D etails LastModified Time Do you feel stressed (tense, restless, nervous, or anxious, or unable to sleep at night)? [id number] Information not available 10/08/2022 Family History Nothing Reported Notes:father/couple bypass s urgeries Medical History No medical history recorded. Gynecological History Statement/Question Response How many live births 2 Date of Last Mammogram 12/17/2022 Date of Last Colonoscopy Most Recent Bone Density Date of LMP 02/23/2020 Sexually Active? Y STIs/STDs N Most Recent Mammogram 09/23/2020 Discharge no Breast Problems no Obstetrics History GPAL:G 2 P 0 0 0 0 Immunizations Vaccine Type Date Status Note Provider Nam e and Address Organization Details Recorded Time SARS-COV-2 (COVID-19) vaccine, UNSPECIFIED 1 completed Not Available [facility] 09/22/2022 09:21:25 SARS-COV-2 (COVID-19) vaccine, UNSPECIFIED 1 completed Not Available [facility] 09/22/2022 09:21:26 Influenza, split virus, quadrivalent, preservative 7 completed Not Available [facility] 09/22/2022 09:21:26 Influenza, split virus, trivalent, preservative 4 completed Not Available [facility] 09/22/2022 09:21:26 Tdap 8 completed Not Available [facility] 09/22/2022 09:21:26 Past Encounters Encounter ID Performer Location Encounter Start Date Encounter Closed Date Diagnosis/Indication Diagnosis SNOMED-CT Code Diagnosis ICD10 Code Diagnosis IMO Codes Diagnosis Note [id number] Eric Gracia MD [address] [address] 01/30/2021 00:00:00 01/30/2021 16:55:46 [id number] Eric Gracia MD [address] [address] 02/27/2021 00:00:00 02/27/2021 16:34:46 [id number] Eric Gracia MD [facility] [address] [place] [address] 04/02/2021 00:00:00 04/02/2021 09:01:22 [id number] Eric Gracia MD [address] [id number] 05/21/2021 00:00:00 05/21/2021 09:12:26 [id number] Eric Gracia MD [address] [id number] 06/26/2021 00:00:00 06/26/2021 08:55:46 [id number] Bibi Carr NP [facility] [address] [address] 10/08/2022 08:32:07 10/08/2022 09:33:37 Adult health examination 017133999 Z00.00 1. Encouraged to follow healthy diet high in lean protein, vegetables , and in-season fruits. Avoid processed food, fried foods, saturated fats, and sugar.2. Encouraged to exercise daily; shoot for 150 minutes/we ek.3. Drink plenty of water. Anemia screening 8051137 07 Z13.0 CBC Diabetes m ellitus screening 004619644 Z13.1 CMP and A1c Thyroid di sorder screening 485491463 Z13.29 TSH Hyperlipid emia screening 889612727 Z13.220 Lipid panel Screening for malignant neoplasm of colon 241542444 Z12.11 Referral provided for colonoscop y. Acne 86142935 L70.9 doxy and metrogel. Obese 921163989 E66.9 discussed phentermin e didn't work. Wegovy option, pt to check insurance. Health Concerns Section Related Observation LastModified by Organization Detai ls LastModified Time None Recorded Concern Status LastModified by Organization Details LastModified Time None Recorded Advance Directives Directive N: Payers Insurance Date Sequence Insurance Name Policy Number Policy Pride Covered Member ID Pride Member ID Guarantor Name 10/05/2022 1 [facility] [id number] Emma Clarke [id number] Emma Clarke Notes Date Note Type Note Provider Name and Address Organization Details Recorded Time 10/08/2022 text/html Pt. here for annual physical. 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 Labs - Due for full set of labs Vaccines - Tdap up to date Colonoscopy - Needs referral for colonoscopy Eye Exam - wears contacts; up to date Dental Exam - goes every 6 months; was there a couple of weeks ago Diet - Does not follow a specific diet but tries to make healthy choices; eats a lot of salads, fruits, and vegetables. Exercise - She does not exercise much. Needs refills on metronidazole and doxycycline face gels. Bibi Carr NP [address], [place], [address], [place] [facility] [place] [employer] [facility] 10/08/2022 09:22:03 OBGyn Episode No OBEpisode recorded.
--- OUTSIDE RECORDS SUMMARY | 2025-07-05 01:47 | XMS_ITS | Clinical Summary ---
Author Organization [employer] [facility] Address [address] [facility] [place] [address] Care Team Providers Care Grass Farmer Name Role Phone Pcp, No Primary Care Provider [phone] Allergies Active Allergy Reactions Criticality Noted Date Comments Penicillins 12/04/2020 Medications buPROPion (WELLBUTRIN XL) 300 MG 24 hr tablet TAKE 1 TABLET BY MOUTH EVERY DAY 11/23/2020 Active hydrOXYzine (ATARAX) 25 MG tablet TAKE 1 TABLET BY MOUTH AT BEDTIME NEEDED 11/11/2020 Active Social History Tobacco Use Types Packs/Day Years Used Date Smoking Tobacco: Never Assessed Comments Unknown Sex and Gender Information Value Date Recorded Sex Assigned at Not on file Legal Sex Female 3:22 PM EDT Gender Identity Not on file Sexual Orientation Not on file Last Filed Vital Signs Vital Sign Reading Time Taken Comments Blood Pressure - - Pulse 96 12/04/2020 3:39 PM CDT Temperature 36.7 C (98 F) 12/04/2020 3:39 PM CDT Respiratory Rate - - Oxygen Saturation 97% 12/04/2020 3:39 PM CDT Inhaled Oxygen Concentration - - Weight - - Height - - Body Mass Index - - Plan of Treatment Not on file Medical Devices Not on file [place] [address] [place] [address] Care Teams Grass Farmer Relationship Specialty Start Date End Date Gosia Dominguez PCP - General Family Medicine 10/19/20
[2025-07-05 07:47] VITALS: BP 140/86; PULSE 90; RESP 18; TEMP 36.6; O2SAT 100
--- NOTE | 2025-07-05 07:50 | PM.IMHP2 ---
H&P: HPI History of Present Illness Date/Time: 07/05/25 07:50 Chief Complaint: Screening colonoscopy Narrative: This is the patient's first colonoscopy. There are no GI symptoms and there is no family history of colorectal cancer. Review of Systems Review of Systems: All systems reviewed & are unremarkable except as noted in HPI and below PMFSH Past Medical History Medical History Allergies Anxiety Asthma Calcification of both carotid arteries Elevated blood pressure reading Lesion of cervical vertebra Surgical History Surgical History History of cholecystectomy (~2019) History of partial hysterectomy (2019) Family History Family History Father Diabetes mellitus Hypertension Heart disease Mother Uterine cancer Hypertension Depression Sibling Asthma Social History Social History (Updated 10/01/24 @ 14:04 by Jose Rafael Hood) Social History: 09/28/24 very confident with medical forms Smoking packs per day: 1 Smoking cigarettes per day: 20.0 Years smoked: 15 Smoking pack-years: 15.00 Smoking status: Former smoker Tobacco type: cigarettes Smoking end date: 09/22/04 Alcohol intake: current Alcohol use details: rarely Substance use: never Substance use type: does not use Lack of Transportation: No Lack of Food: Never True Current Housing: I Have Housing Concerned About Future Housing: No Difficulty Paying Gas/Electric Bills: No Difficulty Paying for Meds: No Currently Unemployed: No Education: Associate Degree Difficulty w/ Childcare or Family Care: No Living arrangements: with family Occupation/Education: occupation 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 [employer] Spiritual care concerns: No Agree to blood products: Yes Meds Home Medications and Allergies Home Medications ?Medication ?Instructions ?Recorded ?Confirmed ?Type bupropion HCl 300 mg 24 hr tablet, 300 mg PO QAM 10/07/23 07/05/25 History extended release (Wellbutrin XL) albuterol sulfate 90 mcg/actuation 2 inh inhalation Q4H PRN shortness 09/26/24 06/28/25 Rx aerosol inhaler (Ventolin HFA) of breath or wheezing #8.5 grams semaglutide (weight loss) 1.7 1.7 mg (0.75 mL) subcut WEEKLY #9 07/25/25 12/05/25 Rx mg/0.75 mL subcutaneous pen mL injector (WirelessGate) rosuvastatin 5 mg tablet 5 mg PO DAILY #90 tabs 05/31/25 07/05/25 Rx Allergies Allergy/AdvReac Type Severity Reaction Status Date / Time Penicillins Allergy Unknown Unknown Verified 07/05/25 07:45 Exam Const: General: cooperative and healthy appearing Resp: Effort & Inspection: normal respiratory effort and able to speak in complete sentences Auscultation: clear to auscultation bilaterally Cardio: Rate: regular rate Rhythm: regular rhythm GI: Inspection: normal to inspection GI Palp: No No hepatosplenomegaly present Auscultation: normal bowel sounds Rectal Exam: deferred Skin: General skin exam: normal color Psych: Appearance: grossly normal Mental Status: mental status grossly normal Assessment and Plan Assessment and plan (1) Encounter for screening colonoscopy: Code(s): Z12.11 - Encounter for screening for malignant neoplasm of colon Status: Acute Assessment and Plan: The patient is deemed a good candidate for the procedure. Consent signed. Will proceed. Prior Studies I have reviewed the following patient records and this information was taken into consideration when formulating the assessment and plan.: previous labs, previous ER visits, previous hospitalizations and previous clinic visits
[2025-07-05] MEDS: LACTATED RINGERS 1,000 ML 150 ML IV CONT ×2 (08:02→08:33)
--- NOTE | 2025-07-05 08:04 | P.PNAN_ITS ---
Anes - Initial Pre Proc Eval Procedure: Operation Date: 07/05/25 08:30 Proposed Procedures p Screening Colonoscopy - Wilber Parks MD Date/Time: 07/05/25 08:04 Surgeon: Wilber Parks MD Pre Op Diagnosis: Encounter for screening for malignant neoplasm of Patient Data Age: 50 Gender: F Height: 1.73 m Weight: 76.3 kg Last Vital Signs Temp 36.6 C 07/05/25 07:47 Pulse 90 07/05/25 07:47 Resp 18 07/05/25 07:47 BP 140/86 07/05/25 07:47 Pulse Ox 100 07/05/25 07:47 O2 Del Method Room Air 07/05/25 07:47 Allergies Allergy/AdvReac Type Severity Reaction Status Date / Time Penicillins Allergy Unknown Unknown Verified 07/05/25 07:45 Home Medications ?Medication ?Instructions ?Recorded ?Confirmed ?Type bupropion HCl 300 mg 24 hr tablet, 300 mg PO QAM 10/0607/05/25 History extended release (Wellbutrin XL) albuterol sulfate 90 mcg/actuation 2 inh inhalation Q4 H PRN shortness 09/26/24 06/28/25 Rx aerosol inhaler (Ventolin HFA) of breath or wheezing # 8.5 grams semaglutide (weight loss) 1.7 1.7 mg (0.75 mL) subcut WEEKLY #9 02/15/25 06/28/25 Rx mg/0.75 mL subcutaneous pen mL injector (Wegovy) rosuvastatin 5 mg tablet 5 mg PO DAILY #90 tabs 05/3107/05/25 Rx Patient hx anesthesia problems: none Family hx anesthesia problems: none Results Review: All pre-operative results and documents have been reviewed as part of the pre- operative evaluation. [facility] Past Medical History Medical History Lesion of cervical vertebra Calcification of both carotid arteries Anxiety Elevated blood pressure reading Asthma Allergies Surgical History Surgical History History of partial hysterectomy (2019) History of cholecystectomy (~2019) Family History Family History Father Diabetes mellitus Hypertension Heart disease Mother Uterine cancer Hypertension Depression Sibling Asthma Social History Social History Social History: 09/28/24 very confident with medical forms Smoking packs per day: 1 Smoking cigarettes per day: 20.0 Years smoked: 15 Smoking pack-years: 15.00 Smoking status: Former smoker Tobacco type: cigarettes Smoking end date: 09/22/04 Alcohol intake: current Alcohol use details: rarely Substance use: never Substance use type: does not use Lack of Transportation: No Lack of Food: Never True Current Housing: I Have Housing Concerned About Future Housing: No Difficulty Paying Gas/Electric Bills: No Difficulty Paying for Meds: No Currently Unemployed: No Education: Associate Degree Difficulty w/ Childcare or Family Care: No Living arrangements: with family Occupation/Education: occupation 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 Spiritual care concerns: No Agree to blood products: Yes Anes - Eval Final PreProcedure Day of Procedure 07/05/25 08:04 Patient weight: normal Heart: regular rate and rhythm Lungs: clear to auscultation Airway: Mallampati scale class II Neurological: alert and oriented Last oral intake: >/= 8 hours ASA classification: II Emergent: no Anesthetic plan: proceed Anesthesia type and monitoring: general GIVS and standard monitoring Results Review: All pre-operative results and documents have been reviewed as part of the pre- operative evaluation. Informed Consent: The patient's anesthetic plan and its attendant risks and benefits were discussed with the patient/family/POA. Questions were solicited and answers provided to the satisfaction of the patient/family/POA.
[2025-07-05 08:37] VITALS: BP 98/68; PULSE 86; RESP 20; O2SAT 100
[2025-07-05 08:47] VITALS: BP 108/76; PULSE 75; RESP 22; O2SAT 100
[2025-07-05 08:57] VITALS: BP 110/75; PULSE 74; RESP 18; O2SAT 100
== END 2025-07-05 09:03 | disposition home or self-care (01) ==
PROVIDERS: PCP Nurse Practitioner Family; Referring Provider Nurse Practitioner Family; Visit Provider Internal Medicine Gastroenterology
PROC: 0DJD8ZZ Inspection of Lower Intestinal Tract, Via Natural or Artificial Opening Endoscopic (ICD-10-PCS; CPT 45378; principal; 2025-07-05 08:30)
DX: Z12.11 Encounter for screening for malignant neoplasm of colon (principal); K64.8 Other hemorrhoids; F41.9 Anxiety disorder, unspecified; J45.909 Unspecified asthma, uncomplicated; R03.0 Elevated blood-pressure reading, without diagnosis of hypertension; Z79.51 Long term (current) use of inhaled steroids; Z79.85 Long-term (current) use of injectable non-insulin antidiabetic drugs; Z98.890 Other specified postprocedural states; Z90.49 Acquired absence of other specified parts of digestive tract; Z87.891 Personal history of nicotine dependence; Z86.79 Personal history of other diseases of the circulatory system; Z80.49 Family history of malignant neoplasm of other genital organs; Z82.49 Family history of ischemic heart disease and other diseases of the circulatory system
CPT/HCPCS: 45378; J2003; J2704; J7120